=== PATIENT | female | born 1965 | race Caucasian/White ===

== ENCOUNTER 2023-03-30 15:25 | Outpatient (CLI) | payer OTHER, SELFPAY ==
--- NOTE | ~2023-03-30 | MR_ITS ---
EXAMINATION: MR knee RT wo con DATE: 03/30/2023 16:08 INDICATION: Internal derangement of the right knee involving the medial meniscus. TECHNIQUE: Magnetic resonance imaging (MRI) of the right knee was performed without intravenous contr ast. Sequences included coronal PD-weighted FSE, coronal PD-weighted FS FSE, sagittal T2-weighted FS E, sagittal PD-weighted FS FSE and axial PD weighted fat saturated FSE. COMPARISON: None. FINDINGS: Medial compartment: Complex tear involving the posterior horn and posterior body of the medial meniscus with the tear ext ends contact both the superior and inferior articular surfaces. A small meniscal flap arising at the junction of the body and posterior horn is subluxed into the inferior gutter along side the medial ri m of the medial tibial plateau. Articular cartilage is normal. Lateral compartment: Lateral meniscus is normal. Articular cartilage is normal. Patellofemoral compartment: Articular cartilage is normal. Ligaments and tendons: Anterior and posterior cruciate ligaments are normal. The medial collateral ligament and fibular storm ateral ligament complex are normal. The extensor mechanism is normal. The visualized medial and later al hamstring tendons as well as the iliotibial band are normal. Fluid: Physiologic amount of fluid in the joint space. No loose osteochondral bodies identified. There is a multilobulated ganglion cyst at the popliteal fossa which appears to arise from the posterior recess near the lateral margin of the femoral footplate of the medial head of the gastrocnemius. The cyst me asures 3.2 x 2.1 x 1.9 cm in maximal dimensions. Osseous/other: Couple small low signal intensity bone islands at the inferior aspect of the trochlear groove and at the lateral femoral epicondyle. No fracture or pathologic marrow replacing process. IMPRESSION: 1. Complex medial meniscal tear. 2. Multilobulated ganglion cyst at the cephalad aspect of the popliteal recess. Reviewed, dictated and finalized at location A.
== END 2023-03-30 15:26 | disposition home or self-care (01) ==
LOC: ANHIMG 15:32
PROVIDERS: PCP Nurse Practitioner Family; Visit Provider Orthopaedic Surgery
DX: M23.305 Other meniscus derangements, unspecified medial meniscus, unspecified knee (principal); M23.41 Loose body in knee, right knee; S83.231A Complex tear of medial meniscus, current injury, right knee, initial encounter; X58.XXXA Exposure to other specified factors, initial encounter
CPT/HCPCS: 73721